=== PATIENT | male | born 1940 | race Caucasian/White ===

== ENCOUNTER → 2016-09-21 | Outpatient (CLI) | payer OTHER | LOC: BHLMT 10:00 | PROVIDERS: ATTEND Internal Medicine Cardiovascular Disease | DX: I25.10 Atherosclerotic heart disease of native coronary artery without angina pectoris (principal); I42.9 Cardiomyopathy, unspecified | CPT/HCPCS: 93306-PO ==

== ENCOUNTER → 2017-11-02 | Outpatient (CLI) | payer OTHER | LOC: FCPNEURO 20:00 | PROVIDERS: ATTEND Student in an Organized Health Care Education/Training Program | DX: G47.33 Obstructive sleep apnea (adult) (pediatric) (principal); G47.31 Primary central sleep apnea ==

== ENCOUNTER → 2018-09-18 | Outpatient (CLI) | payer OTHER | LOC: FIMAGING 08:56 | PROVIDERS: ATTEND Internal Medicine Geriatric Medicine | DX: I50.9 Heart failure, unspecified (principal); Z95.0 Presence of cardiac pacemaker; Z95.5 Presence of coronary angioplasty implant and graft ==

== ENCOUNTER 2018-10-02 09:42 | Emergency (ER) | payer OTHER ==
[2018-10-02 10:30] LABS: PLATELET COUNT 412 10^3/uL (150-400)
[2018-10-02] MEDS ORDERED: IPRATROPIUM/ALBUTEROL 3 ML DEYVIAL IH ONE (10:35)
[2018-10-02] MEDS ORDERED: BENZONATATE 100 MG CAP PO ONE (10:35)
--- NOTE | 2018-10-02 10:35 | EDPHY ---
H & P Time Seen by Provider: 10/02/18 10:06 HPI/ROS: HPI Difficulty breathing. Cough. 77-year-old male by ambulance. He comes from an elderly daycare center. He was seen by his primary care physician about 2 weeks ago with complaint of cough. He was diagnosed with a bronchitis. He does have a history of heart failure. He was not prescribed antibiotic at that time. He presents to the emergency department with his daughter who works at the hospital. He complains of a worsening cough since that time and specifically over the last few days. He reports that he has been having a hard time catching his breath in between bouts of coughing. He describes the cough is mostly dry. He has not had a fever. ROS: Constitutional: No fever, no chills. No weakness. Eyes: No discharge. No changes in vision. ENT: No sore throat. No nasal congestion or rhinorrhea. Respiratory: As above. Cardiac: No chest pain, no palpitations. Gastrointestinal: No abdominal pain, no vomiting, no diarrhea. Genitourinary: No hematuria. No dysuria or increased frequency with urination. Musculoskeletal: No back pain. No neck pain. No myalgias or arthralgias. Skin: No rashes. Neurological: No headache. No focal weakness or altered sensation. Past medical history: Hyperlipidemia, hypothyroid, gout, CHF, DVT. Primary care physician is Dr. Desirae Jansen. Social history: Nonsmoker, no alcohol. Here with his daughter. 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 Physical Exam: General Appearance: Alert, no distress. Somewhat disheveled. This patient is responding to questions appropriately and in full sentences. This patient appears well-hydrated and well-nourished. Eyes: Pupils equal and round no pallor or injection. No lid edema, erythema or injection. Respiratory: There are no retractions, lung sounds are diminished bilaterally throughout. No significant wheezing. Intermittent dry cough. No tachypnea. Cardiovascular: Regular rate and rhythm. Holosystolic murmur noted. Gastrointestinal: Abdomen is soft and nontender, no masses, bowel sounds normal. No focal tenderness at McBurney's point. No Flores sign. Neurological: Motor sensory function is grossly intact. Cranial nerves are normal. Skin: Warm and dry, no rashes. Musculoskeletal: Neck is supple and nontender. Extremities are symmetrical. All joints range without pain or impingement. Psychiatric: No agitation. No depression. Database: EKG: Imaging: Chest x-ray PA and lateral; No acute failure. No infiltrate. No pneumothorax. No acute cardiopulmonary disease process noted. Essentially unchanged from prior study. Interpreted by me. Procedures: Emergency department course: Triage vital signs reviewed. He is afebrile. Triage vital signs are unremarkable. Pulse oximetry is 96% on room air. He will be given Tessalon parole as well as a trial albuterol/Atrovent nebulizer treatment chest x-ray to be obtained shortly. 11:35 a.m., the patient was re-evaluated, resting comfortably at this time. Room air pulse oximetry is 96%. No tachypnea. He is feeling better after above treatment. I discussed the results of his blood work as well as chest x- ray with him and his daughter. I did discuss admission for observation. I explained however that he most likely has a viral bronchitis. They both feel comfortable being discharged. The patient will be return to his elderly daycare center. He will also have home health care check on him tomorrow. I will prescribe Tessalon Perles. He is afebrile. I do not feel that antibiotics are warranted at this time. I discussed this with the patient and his daughter. They are in agreement. Follow-up and return to emergency department precautions were reviewed. All of their questions were answered. The patient was discharged from the emergency department in good condition with his daughter. Differential Diagnosis: The differential diagnosis on this patient includes but is not limited to bronchitis, pneumonia, CHF. This represents a partial list of diagnoses considered. These considerations are based on history, physical exam, past history, reassessment and diagnostic testing. Smoking Status: Current every day smoker Constitutional: Initial Vital Signs Temperature (C) 36.5 C 10/02/18 09:52 Heart Rate 88 10/02/18 09:52 Respiratory Rate 20 10/02/18 09:52 Blood Pressure 131/63 H 10/02/18 09:52 O2 Sat (%) 96 10/02/18 09:52 O2 Delivery Mode Room Air Allergies/Adverse Reactions: No Known Allergies Allergy (Unverified 10/02/18 09:49) Home Medications: Medication Instructions Recorded Levothyroxine [Synthroid 50 mcg 50 mcg PO DAILY06 10/10/14 (*)] Simvastatin [Zocor] 80 mg PO DAILY18 10/10/14 Acetaminophen [Tylenol 325mg (*)] 650 mg PO Q4 PRN #0 tab 10/17/14 Aspirin EC [Aspirin EC 325 mg (*)] 325 mg PO DAILY #0 tab 10/17/14 Furosemide [Lasix 40 MG (*)] 40 mg PO BID@0900,1500 #60 tab 10/17/14 Metoprolol Tartrate [Lopressor 25 12.5 mg PO BID #60 tab 10/17/14 mg (*)] traMADol [Ultram 50 mg (*)] 50 - 100 mg PO Q4H PRN #30 tab 10/17/14 Allopurinol 10/02/18 Benzonatate [Tessalon Pearles] 100 mg PO TID #12 cap 10/02/18 Coumadin 10/02/18 Entresto 49 mg/51 mg (RX) 10/02/18 Medical Decision Making - Diagnostics Imaging Results: Imaging Impressions Chest X-Ray 10/02/18 10:06 Impression: 1. No acute process. 2. Cardiomegaly and small bilateral pleural effusions unchanged. No acute failure. - Data Points Laboratory Results: Laboratory Results 10/02/18 10:17 10/02/18 10:17 10/02/18 10/02/18 10:17 10:17 WBC 9.96 10^3/uL H 10^3/uL (3.80-9.50) RBC 4.47 10^6/uL 10^6/uL (4.40-6.38) Hgb 12.1 g/dL L g/dL (13.7-17.5) Hct 39.9 % L % (40.0-51.0) MCV 89.3 fL fL (81.5-99.8) MCH 27.1 pg L pg (27.9-34.1) MCHC 30.3 g/dL L g/dL (32.4-36.7) RDW 15.8 % H % (11.5-15.2) Plt Count 412 10^3/uL H 10^3/uL (150-400) MPV 11.0 fL fL (8.7-11.7) Neut % (Auto) 84.4 % H % (39.3-74.2) Lymph % (Auto) 7.6 % L % (15.0-45.0) Mcminn % (Auto) 7.2 % % (4.5-13.0) Eos % (Auto) 0.3 % L % (0.6-7.6) Baso % (Auto) 0.1 % L % (0.3-1.7) Nucleat RBC Rel Count 0.0 % % (0.0-0.2) Absolute Neuts (auto) 8.40 10^3/uL H 10^3/uL (1.70-6.50) Absolute Lymphs (auto) 0.76 10^3/uL L 10^3/uL (1.00-3.00) Absolute Monos (auto) 0.72 10^3/uL 10^3/uL (0.30-0.80) Absolute Eos (auto) 0.03 10^3/uL 10^3/uL (0.03-0.40) Absolute Basos (auto) 0.01 10^3/uL L 10^3/uL (0.02-0.10) Absolute Nucleated RBC 0.00 10^3/uL 10^3/uL (0-0.01) Immature Gran % 0.4 % % (0.0-1.1) Immature Gran # 0.04 10^3/uL 10^3/uL (0.00-0.10) Sodium 139 mEq/L mEq/L (135-145) Potassium 4.7 mEq/L mEq/L (3.5-5.2) Chloride 110 mEq/L mEq/L (97-110) Carbon Dioxide 22 mEq/l mEq/l (22-31) Anion Gap 7 mEq/L mEq/L (6-14) BUN 27 mg/dL H mg/dL (7-23) Creatinine 1.3 mg/dL mg/dL (0.7-1.3) Estimated GFR 54 Glucose 111 mg/dL H mg/dL (70-100) Calcium 8.6 mg/dL mg/dL (8.5-10.4) Medications Given: Discontinued Medications Albuterol/Ipratropium (Duoneb) 3 ml IH EDNOW ONE Stop: 10/02/18 10:36 Last Admin: 10/02/18 10:50 Dose: 3 ml Benzonatate (Tessalon Pearles) 200 mg PO EDNOW ONE Stop: 10/02/18 10:36 Last Admin: 10/02/18 10:49 Dose: 200 mg Departure - Departure Disposition: Home, Routine, Self-Care Clinical Impression: Bronchitis Condition: Good Instructions: Acute Bronchitis (ED) Additional Instructions: Read and follow provided instructions. Follow-up with your primary care physician in 1-2 days for re-evaluation as discussed. Take medication as prescribed for cough. Albuterol nebulizer or meter dose inhaler: 1-2 puffs every 2-4 hours as needed for cough and shortness of breath. Return to the emergency department for worsening symptoms, worsening cough, difficulty breathing, fever or other serious concerns. Referrals: Desirae Lott MD [Primary Care Provider] - As per Instructions Prescriptions: Benzonatate [Tessalon Pearles] 100 mg PO TID #12 cap
[2018-10-02 11:53] VITALS: BP 136/74
== END 2018-10-02 11:52 | disposition home or self-care (01) ==
DX: J40 Bronchitis, not specified as acute or chronic (principal); E78.5 Hyperlipidemia, unspecified; E03.9 Hypothyroidism, unspecified; I50.9 Heart failure, unspecified; F17.200 Nicotine dependence, unspecified, uncomplicated